=== PATIENT | female | born 2000 | race African-American/Black ===

== ENCOUNTER 2021-11-26 20:09 | Emergency (ER) | payer MEDICAID ==
[~2021-11-26] VITALS: Ht 167.6 cm; Wt 78.9 kg
[2021-11-26 22:35] VITALS: BP 119/77
== END 2021-11-26 22:42 | disposition home or self-care (01) ==
LOC: EMS 20:11
DX: G62.9 Polyneuropathy, unspecified (principal); F12.90 Cannabis use, unspecified, uncomplicated
CPT/HCPCS: 99283